=== PATIENT | female | born 1980 ===

== ENCOUNTER 2017-11-06 15:17 | Emergency (ER) | payer BC ==
[2017-11-06 15:17] VITALS: BMI 33.3
[2017-11-06 15:26] VITALS: BP 124/73; PULSE 77; RESP 16; TEMP 98; O2SAT 100
--- NOTE | 2017-11-06 16:06 | ED PDOC ---
HPI: Back Time Seen by Provider: 11/06/17 15:28 Chief Complaint (Nursing): Abdominal Pain Chief Complaint (Provider): back pain History Per: Patient History/Exam Limitations: no limitations Onset/Duration Of Symptoms: Days (x3) Current Symptoms Are (Timing): Still Present Additional Complaint(s): 36 year old female who presents to the emergency department with a complaint of right-sided back pain radiating diffusely to abdomen and exacerbated by movements ongoing for 3 days. She also reported vomiting, nausea and constipation that began today. Patient reported history of kidney stones as per [facility] despite a negative CT ABD scan. Denied any diarrhea or urinary issues. Of note, patient noted last meal she consumed was eggs this morning with LMP occurring 2 weeks ago. PMD: Leandro Garcia MD Past Medical History Reviewed: Historical Data, Nursing Documentation, Vital Signs Vital Signs: Last Vital Signs Temp 98.0 F 11/06/17 15:23 Pulse 77 11/06/17 15:23 Resp 16 11/06/17 15:23 BP 124/73 11/06/17 15:23 Pulse Ox 100 11/06/17 15:23 - Medical History PMH: Asthma, Kidney Stones Denies: Depression - Surgical History Surgical History: No Surg Hx - Family History Family History: States: Unknown Family Hx - Social History Current smoker - smoking cessation education provided: No Alcohol: None Drugs: Denies - Home Medications Home Medications: Ambulatory Orders Medication Instructions Recorded Albuterol 0.083% [Albuterol 3 ml IH PRN PRN 02/16/13 Sulfate 3 Ml] Albuterol Sulfate [Proair Hfa] 0.09 mg IH Q4 PRN #1 ml 02/16/13 Albuterol Sulfate [Proventil Hfa] 0.09 mg IH PRN PRN 02/16/13 Prednisone 20 mg PO DAILY #14 tab 02/16/13 Ketorolac Tromethamine [Toradol] 10 mg PO QID #10 tab 11/04/17 traMADol [Ultram] 50 mg PO Q6 PRN #12 tab 11/06/17 - Allergies Allergies/Adverse Reactions: Allergies Allergy/AdvReac Type Severity Reaction Status Date / Time Penicillins Allergy Severe ANAPHYLAXIS Verified 11/04/17 20:26 terbutaline Allergy RASH Verified 11/06/17 15:23 Review of Systems ROS Statement: Except As Marked, All Systems Reviewed And Found Negative Gastrointestinal: Positive for: Nausea, Vomiting, Abdominal Pain (diffuse), Constipation. Negative for: Diarrhea Genitourinary Female: Negative for: Dysuria, Incontinence, Hematuria Musculoskeletal: Positive for: Back Pain (right-sided) Physical Exam - Reviewed Nursing Documentation Reviewed: Yes Vital Signs Reviewed: Yes - Physical Exam Appears: Positive for: Well (afebrile and obese), Non-toxic, No Acute Distress. Negative for: In Acute Distress Cardiovascular/Chest: Positive for: Regular Rate, Rhythm, Chest Non Tender Respiratory: Positive for: Normal Breath Sounds. Negative for: Decreased Breath Sounds, Wheezing, Respiratory Distress Gastrointestinal/Abdominal: Positive for: Normal Exam, Soft, Tenderness (mildly to lower abdominal area on palpation ). Negative for: Mass Back: Positive for: Other (reproducible right flank tenderness on palpation. tenderness on left trunk rotation and lumbar flexion). Negative for: Decreased ROM Extremity: Positive for: Normal ROM (upper/lower), Other (able to ambulate). Negative for: Calf Tenderness (bilateral), Deformity (upper/lower) Neurologic/Psych: Positive for: Alert (x3), Oriented - Laboratory Results Result Diagrams: 11/06/17 16:48 11/06/17 16:48 - ECG O2 Sat by Pulse Oximetry: 100 (RA) Pulse Ox Interpretation: Normal Medical Decision Making Medical Decision Making: Initial Impression: Right flank pain Initial Plan: * CMP * CBC * UA * US renal Scribe Attestation: Documented by Casandra Cobb, acting as a scribe for Roni Griffith DO. Provider Scribe Attestation: All medical record entries made by the Scribe were at my direction and personally dictated by me. I have reviewed the chart and agree that the record accurately reflects my personal performance of the history, physical exam, medical decision making, and the department course for this patient. I have also personally directed, reviewed, and agree with the discharge instructions and disposition. Disposition - Clinical Impression Clinical Impression: Flank pain - Patient ED Disposition Is Patient to be Admitted: No - Disposition Referrals: Oz Leonardo MD [Medical Doctor] - Disposition: Routine/Home Disposition Time: 20:00 Condition: STABLE Prescriptions: traMADol [Ultram] 50 mg PO Q6 PRN #12 tab PRN Reason: flank pain Instructions: Flank Pain Forms: [facility] (Yi)
[2017-11-06 17:03] LABS: SQUAMOUS EPITHIAL 2 /hpf (0-5); URINE BILIRUBIN NEGATIVE (NEGATIVE); URINE BLOOD NEGATIVE (NEGATIVE); URINE CLARITY SLIGHTY-CLOUDY (Clear); URINE COLOR YELLOW (YELLOW); URINE GLUCOSE (UA) NEG (Normal); URINE LEUKOCYTE ESTERASE NEG Leu/uL (Negative); URINE NITRATE NEGATIVE (NEGATIVE); URINE PROTEIN NEGATIVE (NEGATIVE); URINE UROBILINOGEN 0.2-1.0 mg/dL (0.2-1.0)
[2017-11-06 17:04] LABS: MEAN CELL VOLUME 85.5 fl (81.0-99.0); MEAN CORPUSCULAR HEMOGLOBIN 28.1 pg (27.0-31.0); MEAN CORPUSCULAR HGB CONC 32.8 g/dL (33.0-37.0); RBC 4.99 Mil/uL (3.80-5.20); RED CELL DISTRIBUTION WIDTH 14.8 % (11.5-14.5); WHITE BLOOD COUNT 13.2 K/uL (4.8-10.8)
[2017-11-06 17:11] LABS: ALB/GLOB RATIO 1.2 (1.0-2.1); ALT/SGPT 34 U/L (9-52); AST/SGOT 21 U/L (14-36); BLOOD UREA NITROGEN 13 mg/dl (7-17); CALCIUM 9.7 mg/dL (8.4-10.2); GFR AFRICAN-AMERICAN > 60; GFR NON-AFRICAN AMERICAN > 60
--- NOTE | 2017-11-06 19:17 | ED PDOC ---
- Laboratory Results Result Diagrams: 11/06/17 16:48 11/06/17 16:48 - ECG O2 Sat by Pulse Oximetry: 100 (RA) Pulse Ox Interpretation: Normal Medical Decision Making Medical Decision Making: Patient signed out to provider at [address] Griffith pending ultrasound. 1940 EXAM: US Retroperitoneal Limited, Renal EXAM DATE/TIME: Exam ordered 11/06/2017 6:45 PM CLINICAL HISTORY: 36 years old, female; Pain; Other: Right flank pain TECHNIQUE: Real-time ultrasound of the retroperitoneum (limited) with image documentation. COMPARISON: No relevant prior studies available. FINDINGS: Right kidney: Unremarkable. No stones. No solid mass. No hydronephrosis. Left kidney: Unremarkable. No stones. No solid mass. No hydronephrosis. IMPRESSION: Normal retroperitoneal ultrasound. 2003 Benign ultrasound was explained to patient. Patient states that the toradol she was prescribed at [place] has been helping her with pain. However, she states that she feels as though the medication causes her to have palpitations and is now requesting a change in medication. Patient will be refferred to a urologist. Patient is medically stable and will be discharged home with rx for Ultram. Diagnosis: Flank Pain Condition: Stable RX: Ultram Documented by Eugenia Ruiz acting as a scribe for Yuri Daniel MD. All medical record entries made by the Scribe were at my direction and personally dictated by me. I have reviewed the chart and agree that the record accurately reflects my personal performance of the history, physical exam, medical decision making, and the department course for this patient. I have also personally directed, reviewed, and agree with the discharge instructions and disposition. Disposition Counseled Patient/Family Regarding: Studies Performed, Diagnosis, Need For Followup - Clinical Impression Clinical Impression: Flank pain - POA Present On Arrival: None - Disposition Referrals: Oz Leonardo MD [Medical Doctor] - Disposition: Routine/Home Disposition Time: 20:04 Condition: STABLE Prescriptions: traMADol [Ultram] 50 mg PO Q6 PRN #12 tab PRN Reason: flank pain Instructions: Flank Pain Forms: [facility] (Vietnamese)
--- NOTE | 2017-11-07 13:38 | US ---
PROCEDURE: Ultrasound of the Kidneys HISTORY: right flank pain COMPARISON: None available. TECHNIQUE: Sonogram of the kidneys. FINDINGS: RIGHT KIDNEY: Measures: cm. Normal in size, contour and echogenicity. No stone, solid mass lesion or hydronephrosis visualized. LEFT KIDNEY: Measures: cm. Normal in size, contour and echogenicity. No stone, solid mass lesion or hydronephrosis visualized. OTHER FINDINGS: None. IMPRESSION: Unremarkable renal sonogram.
== END 2017-11-06 20:25 | disposition home or self-care (01) ==
LOC: H.ER 15:17
DX: R10.9 Unspecified abdominal pain (principal)